=== PATIENT | female | born 1950 | race Caucasian/White ===

== ENCOUNTER → 2017-11-18 | Outpatient (CLI) | payer OTHER ==
[~2017-11-18] MED LIST: ARIXTRA; CITRUCEL CLEAR539 G1; COLACE 100 MG100 MG; MIRALAX255 GM; NORCO 5-325 TA1 EACH; PEPCID; TRAMADOL 50 MG50 MG
== END ==
LOC: M.RAD 15:19
DX: Z12.31 Encounter for screening mammogram for malignant neoplasm of breast (principal)